=== PATIENT | male | born 1970 | race Caucasian/White ===

== ENCOUNTER 2019-02-14 05:14 | Day surgery (SDC) | payer BC ==
[2019-02-14] VITALS (8 sets, daily range): BP systolic 106–132; BP diastolic 75–85
[~2019-02-14] VITALS: Ht 172.7 cm; Wt 108.9 kg
[~2019-02-14 05:14] MED LIST: ATORVASTATIN CA40 MG ORAL; FLOMAX0.4 MG ORAL; LOSARTAN-HCTZ1 EACH ORAL; METFORMIN HCL1000 M1 ORAL; NORCO 5-325 TA1 EACH ORAL
[2019-02-14] MEDS ORDERED: LR 1000ml 1,000 ML IVLG SCH ×2 (06:34→07:00)
--- NOTE | 2019-02-14 06:34 | Anethesia Preoperative Eval ---
Anesthesia Pre-op PMH/ROS General Date of Evaluation: Feb 14, 2019 Anesthesiologist: Mando ASA Score: ASA 2 Mallampati Score Class I : Soft palate, uvula, fauces, pillars visible Class II: Soft palate, uvula, fauces visible Class III: Soft palate, base of uvula visible Class IV: Only hard plate visible Mallampati Classification: Class III Surgeon: Yohan Diagnosis: Screening Surgical Procedure: Colonoscopy Anesthesia History: none Family History: no anesthesia problems Allergies: Coded Allergies: No Known Allergies (Unverified , 02/13/19) Medications: see eMAR Patient NPO?: Yes NPO Date: Feb 13, 2019 NPO Time: 22:00 Past Medical History Cardiovascular: Reports: HTN, other - HLD; Denies: CAD, SC, valve dz, arrhythmia Pulmonary: Denies: asthma, COPD, SAPNA, other Gastrointestinal/Genitourinary: Reports: other - Colitis, BPH; Denies: GERD, CRI, ESRD Neurologic/Psychiatric: Reports: other - migraines, vertigo; Denies: dementia, CVA, depression/anxiety, TIA Endocrine: Reports: DM; Denies: hypothyroidism, steroids, other HEENT: Denies: cataract (L), cataract (R), glaucoma, [place] (L), [place] (R), other Hematology/Immune: Denies: anemia, DVT, bleeding disorder, other Musculoskeletal/Integumentary: Denies: OA, RA, DJD, DDD, edema, other Other: obesity PSxH Narrative: ex-lap Anesthesia Pre-op Phys. Exam Physician Exam Last Vital Signs Date Time Temp Pulse Resp B/P (MAP) Pulse Ox O2 Delivery O2 Flow Rate FiO2 02/14/19 05:50 Room Air 02/14/19 05:47 97.6 72 20 128/75 98 Constitutional: NAD Cardiovascular: RRR Respiratory: CTA Airway Exam Mallampati Score: Class III MO: limited ROM: limited Anesthesia Pre-op A/P Labs see chart Studies Pre-op Studies: EKG - sr Risk Assessment & Plan Assessment: ASA II Plan: MAC Status Change Before Surgery: No Pre-Antibiotics Drug: N/A Peggy Chong MD Feb 14, 2019 06:34
[2019-02-14] MEDS ORDERED: DiphenhydrAMINE 50mg/ml Inj IVP PRN (06:45)
[2019-02-14] MEDS ORDERED: Propofol 200mg/20ml IV ONE (07:00)
[2019-02-14] MEDS ORDERED: Glycopyrrolate 0.2mg/ml 1ml Vial ONE (07:00)
[2019-02-14] MEDS ORDERED: LR 1000ml ONE (07:00)
[2019-02-14] MEDS ORDERED: Lidocaine 1% MPF 10mg/ml 5ml ONE (07:00)
--- NOTE | 2019-02-14 07:10 | Pre-Procedure Note/Attestation ---
Pre-Procedure Note/Attestation Complete Prior to Procedure Planned Procedure: not applicable Procedure Narrative: colonoscopy Indications for Procedure Pre-Operative Diagnosis: UC Attestation I attest that I discussed the nature of the procedure; its benefits; risks and complications; and alternatives (and the risks and benefits of such alternatives ), prior to the procedure, with the patient (or the patient's legal new accounts representative). I attest that, if there was a reasonable possibility of needing a blood transfusion, the patient (or the patient's legal new accounts representative) was given the [facility] standardized written summary, pursuant to the [place] Blood Safety Act ([place] Health and Safety Code # 1645, as amended). I attest that I re-evaluated the patient just prior to the surgery and that there has been no change in the patient's H&P, except as documented below: Ginna Almanzar MD Feb 14, 2019 07:10
--- NOTE | 2019-02-14 07:10 | Short Stay Surgery H&P ---
History of Present Illness History of Present Illness Chief Complaint see attached typed H&P HPI Lupillo Zazueta is a 48 year old male who was admitted on for Ulcerative Colitis Patient History Allergies: Coded Allergies: No Known Allergies (Unverified , 02/13/19) Medication History Scheduled Atorvastatin Calcium* (Atorvastatin Calcium*), 40 MG ORAL BEDTIME, (Reported) Losartan/Hydrochlorothiazide (Losartan-Hctz 100-12.5 Mg Tab), 1 TAB ORAL DAILY, (Reported) Metformin Hcl* (Metformin Hcl*), 1,000 MG ORAL BID, (Reported) Tamsulosin HCl (Flomax), 0.4 MG ORAL DAILY, (Reported) Discontinued Medications Hydrocodone Bit/Acetaminophen 5-325* ([place] 5-325*), 1 TAB ORAL Q6H PRN for For Pain Discontinued Reason: Pt stopped taking med Physical Exam Vital Signs Last Vital Signs Date Time Temp Pulse Resp B/P (MAP) Pulse Ox O2 Delivery O2 Flow Rate FiO2 02/14/19 05:50 Room Air 02/14/19 05:47 97.6 72 20 128/75 98 Plan Attestation Are the patient's medical conditions optimized for surgery? Ginna Almanzar MD Feb 14, 2019 07:10
--- NOTE | 2019-02-14 08:05 | Immediate Post-Op Evaluation ---
Immediate Post-Op Evalulation Immediate Post-Op Evalulation Procedure: Colonoscopy Date of Evaluation: Feb 14, 2019 Time of Evaluation: 08:07 IV Fluids: 500 Blood Products: 0 Estimated Blood Loss: min Urinary Output: 0 Blood Pressure Systolic: 106 Blood Pressure Diastolic: 81 Pulse Rate: 90 Respiratory Rate: 18 O2 Sat by Pulse Oximetry: 99 Temperature (Fahrenheit): 97.8 Pain Score (1-10): 0 Nausea: No Vomiting: No Complications 0 Patient Status: awake, reacts, patent, none Hydration Status: adequate Drug: N/A Peggy Chong MD Feb 14, 2019 08:05
--- NOTE | 2019-02-14 08:07 | 48 Hour Post Anesthesia Eval ---
Post Anesthesia Evaluation Procedure: Colonoscopy Date of Evaluation: Feb 14, 2019 Airway: patent Nausea: No Vomiting: No Pain Intensity: 0 Hydration Status: adequate Cardiopulmonary Status: at baseline Mental Status/LOC: patient returned to baseline Post-Anesthesia Complications: 0 Follow-up care needed: ready to discharge Peggy Chong MD Feb 14, 2019 08:07
--- NOTE | 2019-02-14 08:22 | Endoscopy Procedure Note ---
Endoscopy Procedure Note General Indication for Procedure: UC Procedures Performed: colonoscopy Operative Findings/Diagnosis: polyp, pseudopol, tics, rhoid Specimen: yes Estimated Blood Loss: none Anesthesia Anesthesiologist: see report Anesthesia: MAC Medications Medication Given: see anesthesia record Inserted Devices Implant(s) used?: No GI Core Measures 50 yrs or older w/o bx or poly: Not Applicable 10yrs. F/U recommended: Not Applicable If not recommended, why?: Ginna Almanzar MD Feb 14, 2019 08:22
--- NOTE | 2019-02-14 08:24 | Brief Operative Note ---
Immediate Post Operative Note Operative Note Chief Complaint: UC Pre-op Diagnosis: UC Procedure: colon, bx, SN Post-op Diagnosis: polyps pseudopolyps tics rhoid Surgeon: beatriz Anesthesiologist: see report Anesthesia: MAC Specimen: yes Complications: none Condition: stable Fluids: recorded Estimated Blood Loss: none Drains: none Implant(s) used?: No Ginna Almanzar MD Feb 14, 2019 08:24
--- NOTE | 2019-02-14 18:15 | Operative Note - Dictated ---
DATE OF OPERATION: 02/14/2019 SURGEON: Ginna Almanzar M.D. ANESTHESIA: Please see the separate anesthesiologist notes for details. PRE-ENDOSCOPIC DIAGNOSIS: Longstanding history of ulcerative colitis. POST-ENDOSCOPIC DIAGNOSES: 1. Quiescent colitis with numerous pseudopolyps especially on the right colon. 2. Status post partial colectomy with end-side anastomosis seen in the region of the hepatic flexure. 3. Normal terminal ileum to about 15 cm, status post random biopsies. 4. Status post random biopsies of colon starting from 80 cm down to the rectum at 10 cm intervals in 4 quadrants. 5. Status post multiple pseudo polyp biopsies at various regions of the colon. These are marked at 70 cm and 60 cm and 40 cm. 6. Pedunculated polyp with a long stalk at 55 cm status post hot snare polypectomy. 7. Mild internal hemorrhoids. DESCRIPTION OF PROCEDURE: The procedure, its risks, indications, alternatives, and possible complications were explained to the patient and informed consent was obtained. A time-out was called, the patient was sedated and the rectal exam was done. The colonoscope was introduced into the rectum and advanced to the terminal ileum. The terminal ileum appeared normal for about 15 cm and biopsies were sent to pathology for review. In the colon, there are numerous small pseudopolyp formations especially in the right colon. Further documentation was obtained and biopsies were obtained for many of these polyps and sent to pathology. Random biopsies of the colon throughout the colon were also sent to pathology for review. In the right colon at 55 cm from the anus, there was a pedunculated polyp on a long stalk, which is removed with a hot snare polypectomy and the specimen was sent to pathology for review. The retroflexed view of the rectum revealed mild internal hemorrhoids. The colonoscope was removed and the patient was sent to recovery in good condition. COMPLICATIONS: None. RECOMMENDATIONS: 1. Follow up biopsy results. 2. Outpatient followup. 3. Repeat colonoscopy in one year. Ginna Almanzar M.D. DR: CHARIS JOB#: [id number] CC:
== END 2019-02-14 09:15 | disposition home or self-care (01) ==
LOC: GAS 05:14
DX: K51.90 Ulcerative colitis, unspecified, without complications (principal); K63.5 Polyp of colon; K64.8 Other hemorrhoids; E78.00 Pure hypercholesterolemia, unspecified; I10 Essential (primary) hypertension; K57.90 Diverticulosis of intestine, part unspecified, without perforation or abscess without bleeding; Z90.89 Acquired absence of other organs; Z90.49 Acquired absence of other specified parts of digestive tract
CPT/HCPCS: 45380; 45385; 82962; J2704; 94003; 94150

== ENCOUNTER 2020-01-03 19:10 | Emergency (ER) | payer BC ==
[~2020-01-03] VITALS: Ht 172.7 cm; Wt 104.3 kg
[2020-01-03] MEDS ORDERED: LIALDA1.2 GM ORAL (19:22)
[2020-01-03] MEDS ORDERED: JANUVIA100 MG ORAL (19:22)
[2020-01-03] MEDS ORDERED: fentaNYL 100 mcg/2 mL IV ONE (19:30)
[2020-01-03] MEDS ORDERED: Omnipaque-300 100ml vial INJ PRN (19:30)
[2020-01-03 20:00] LABS: BASOPHILS % (AUTO) 1.6 % (0.0-2.0); EOSINOPHILS % (AUTO) 3.2 % (0.0-3.0); HEMATOCRIT 43.8 % (42.0-52.0); LYMPHOCYTES % (AUTO) 27.1 % (20.0-45.0); MEAN CORPUSCULAR VOLUME 89 FL (80-99); MONOCYTES % (AUTO) 11.7 % (1.0-10.0); NEUTROPHILS % (AUTO) 56.3 % (45.0-75.0); PLATELET COUNT 240 K/UL (150-450); RED BLOOD COUNT 4.93 M/UL (4.70-6.10); RED CELL DISTRIBUTION WIDTH 12.5 % (11.6-14.8); WHITE BLOOD COUNT 8.3 K/UL (4.8-10.8)
[2020-01-03 20:03] VITALS: BP 139/97
[2020-01-03 20:09] LABS: APPEARANCE,URINE SLIGHTLY CLOUDY; BILIRUBIN, URINE NEGATIVE (NEGATIVE); COLOR,URINE YELLOW; GLUCOSE, URINE (UA) 4+ (NEGATIVE); KETONES,URINE 1+ (NEGATIVE); LEUKOCYTE ESTERASE ,URINE 1+ (NEGATIVE); NITRITE,URINE NEGATIVE (NEGATIVE); PH,URINE 7 (4.5-8.0); PROTEIN,URINE 1+ (NEGATIVE); UROBILINOGEN,URINE 4 MG/DL (0.0-1.0)
[2020-01-03 20:14] LABS: ANION GAP 12 mmol/L (5-15); BLOOD UREA NITROGEN 17 mg/dL (7-18); CALCIUM 9.4 MG/DL (8.5-10.1); CARBON DIOXIDE 27 MMOL/L (21-32); CHLORIDE 104 MMOL/L (98-107); CREATININE 0.9 MG/DL (0.55-1.30); POTASSIUM 3.8 MMOL/L (3.5-5.1); SODIUM 143 MMOL/L (136-145)
[2020-01-03 20:15] LABS: INR 0.9 (0.9-1.1)
[2020-01-03 20:18] LABS: ALANINE AMINOTRANSFERASE 23 U/L (12-78); ALBUMIN 3.8 G/DL (3.4-5.0); ALKALINE PHOSPHATASE 82 U/L (46-116); ASPARTATE AMINO TRANSFERASE 18 U/L (15-37)
--- NOTE | 2020-01-03 20:21 | Emergency Room Report ---
History of Present Illness General Chief Complaint: Skin Rash/Abscess Source: Patient Present Illness HPI Patient is a 49-year-old male past medical history of diabetes and obesity who presents to the ER complaining of our painful bump in between his scrotum and rectum that started 4 days ago. Patient denies any fever or chills. He denies any trauma. He denies any history of similar symptoms. Patient denies any bloody bowel movements. Patient denies any abdominal pain, nausea or vomiting. Patient states that he is able to urinate without difficulty. Allergies: Coded Allergies: No Known Allergies (Unverified , 02/13/19) COVID-19 Screening Contact w/high risk pt: No Recent Travel to affected area: No Experienced COVID-19 symptoms?: No COVID-19 Testing performed SWING DRIVER: No Patient History Past Medical History: DM, other - obesity Past Surgical History: none Social History: Denies: smoking, alcohol use, drug use Nursing Documentation-PMH Hx Cardiac Problems: No - hld Hx Hypertension: Yes Hx Diabetes: Yes Hx Cancer: No Hx Gastrointestinal Problems: Yes - colitis Hx Neurological Problems: Yes Hx Vertigo: Yes Hx Headaches: Yes - migraines Review of Systems All Other Systems: negative except mentioned in HPI Physical Exam Vital Signs Date Time Temp Pulse Resp B/P (MAP) Pulse Ox O2 Delivery O2 Flow Rate FiO2 01/03/20 19:16 98.8 100 16 139/97 (111) 96 Room Air Sp02 EP Interpretation: reviewed, normal General Appearance: no apparent distress, alert, GCS 15, non-toxic Head: normocephalic, atraumatic Eyes: bilateral eye normal inspection, bilateral eye PERRL ENT: hearing grossly normal, normal pharynx, no angioedema, normal voice Respiratory: chest non-tender, lungs clear, normal breath sounds, speaking full sentences Cardiovascular #1: regular rate, rhythm, no edema Gastrointestinal: normal bowel sounds, non tender, soft, non-distended, no guarding, no rebound Rectal: other - Fullness palpated in between the scrotum and rectum to the left it is not visible but it is palpable and tender to palpation there is no erythema there is no discharge there is no crepitus my storage manager was the patient 's bedside nurse Micaela Genitourinary: normal inspection, no CVA tenderness Musculoskeletal: back normal, normal range of motion, gait/station normal, non- tender Neurologic: alert, motor strength/tone normal, oriented x3, sensory intact, responsive, speech normal Psychiatric: judgement/insight normal, memory normal, mood/affect normal, no suicidal/homicidal ideation Skin: no rash Lymphatic: no adenopathy Medical Decision Making Diagnostic Impression: Primary Impression: Rectal pain ER Course Patients labs demonstrate hyperglycemia without DKA. Patient pending CT abd/ pelvis to evaluate this cristela-rectal mass. Signed out to Dr. Rice at [address], reevaluation, and final disposition. Last Vital Signs Date Time Temp Pulse Resp B/P (MAP) Pulse Ox O2 Delivery O2 Flow Rate FiO2 01/03/20 20:03 98.8 100 16 139/97 96 Room Air Signed Out To: Dr. Rice at 2130. Referrals: [facility],REFERRING (PCP) Erika Segundo M.D. January 03, 2020 20:21
--- NOTE | 2020-01-03 21:51 | Diagnostic Imaging Report ---
EXAM: CT Abdomen and Pelvis With Intravenous Contrast CLINICAL HISTORY: PAIN TECHNIQUE: Axial computed tomography images of the abdomen and pelvis with intravenous contrast. CTDI is 13.2 mGy and DLP is 767 mGy-cm. One or more of the following dose reduction techniques were used: automated exposure control, adjustment of the mA and/or kV according to patient size, use of iterative reconstruction technique. COMPARISON: 10/01/2015 FINDINGS: Lung bases: Unremarkable. No mass. No consolidation. ABDOMEN: Liver: Unremarkable. No mass. Gallbladder and bile ducts: Status post cholecystectomy. No ductal dilation. Pancreas: Unremarkable. No mass. No ductal dilation. Spleen: Unremarkable. No splenomegaly. Adrenals: Unremarkable. No mass. Kidneys and ureters: Unremarkable. No solid mass. No hydronephrosis. Stomach and bowel: Sigmoid diverticulosis without diverticulitis. Postsurgical changes along the GI tract without complication. PELVIS: Appendix: No findings to suggest acute appendicitis. Bladder: Unremarkable. No mass. Reproductive: Unremarkable as visualized. ABDOMEN and PELVIS: Intraperitoneal space: Unremarkable. No free air. No significant fluid collection. Bones/joints: No acute fracture. No dislocation. Soft tissues: Unremarkable. Vasculature: Unremarkable. No abdominal aortic aneurysm. Lymph nodes: Unremarkable. No enlarged lymph nodes. IMPRESSION: 1. No acute abnormality. 2. Sigmoid diverticulosis without diverticulitis.
[2020-01-03 21:54] VITALS: BP 132/79
[2020-01-03] MEDS ORDERED: NORCO 5-325 TA1 EAC1 ORAL (22:28)
[2020-01-03] MEDS ORDERED: METRONIDAZOLE500 MG ORAL (22:28)
[2020-01-03] MEDS ORDERED: CEPHALEXIN500 MG ORAL (22:28)
[2020-01-03] MEDS ORDERED: cefTRIAXone 1 GM in NS 55 ML IVPB ONE (22:30)
[2020-01-03] MEDS ORDERED: Ketorolac 30mg Inj IV ONE (22:30)
[2020-01-03 23:14] VITALS: BP 131/75
== END 2020-01-03 23:14 | disposition home or self-care (01) ==
LOC: EMR 19:36
DX: K62.89 Other specified diseases of anus and rectum (principal); I10 Essential (primary) hypertension; E11.9 Type 2 diabetes mellitus without complications; E66.9 Obesity, unspecified; Z68.34 Body mass index [BMI] 34.0-34.9, adult
CPT/HCPCS: 36415; 74177; 80053; 81003; 83690; 83735; 85025; 85610; 85730; 86850; 86900; 86901; 96361; 96365; 96375; 99284; J0696; J1885; J3010; J7030; Q9967

== ENCOUNTER 2020-05-08 06:40 | Day surgery (SDC) | payer BC ==
[~2020-05-08] VITALS: Ht 172.7 cm; Wt 104.3 kg
[2020-05-08] VITALS (8 sets, daily range): BP systolic 108–144; BP diastolic 62–89
--- NOTE | 2020-05-08 06:30 | Anethesia Preoperative Eval ---
Anesthesia Pre-op PMH/ROS General Date of Evaluation: May 08, 2020 Anesthesiologist: Mando ASA Score: ASA 2 Mallampati Score Class I : Soft palate, uvula, fauces, pillars visible Class II: Soft palate, uvula, fauces visible Class III: Soft palate, base of uvula visible Class IV: Only hard plate visible Mallampati Classification: Class III Surgeon: Yohan Diagnosis: UC Surgical Procedure: Colonoscopy Anesthesia History: none Family History: no anesthesia problems Allergies: Coded Allergies: No Known Allergies (Unverified , 02/13/19) Medications: see eMAR Patient NPO?: Yes NPO Date: May 08, 2020 NPO Time: 00:00 Past Medical History Cardiovascular: Reports: HTN, other - HLD; Denies: CAD, AR, valve dz, arrhythmia Pulmonary: Denies: asthma, COPD, SAPNA, other Gastrointestinal/Genitourinary: Reports: other - UC; Denies: GERD, CRI, ESRD Neurologic/Psychiatric: Reports: other - vertigo, migraines; Denies: dementia, CVA, depression/anxiety, TIA Endocrine: Reports: DM; Denies: hypothyroidism, steroids, other HEENT: Denies: cataract (L), cataract (R), glaucoma, [place] (L), [place] (R), other Hematology/Immune: Denies: anemia, DVT, bleeding disorder, other Musculoskeletal/Integumentary: Denies: OA, RA, DJD, DDD, edema, other Other: obesity PSxH Narrative: ex-lap Anesthesia Pre-op Phys. Exam Physician Exam see chart Constitutional: NAD Cardiovascular: RRR Respiratory: CTA Airway Exam Mallampati Score: Class III MO: limited ROM: limited Anesthesia Pre-op A/P Labs see chart Studies Pre-op Studies: EKG - sr Risk Assessment & Plan Assessment: ASA II Plan: MAC Status Change Before Surgery: No Pre-Antibiotics Drug: N/A Peggy Gilmore MD May 08, 2020 06:30
[~2020-05-08 06:40] MED LIST changes: +CEPHALEXIN500 MG ORAL; +DiphenhydrAMINE 50mg/ml Inj IVP PRN; +JANUVIA100 MG ORAL; +LIALDA1.2 GM ORAL; +LR 1000ml 1,000 ML IVLG SCH; +METRONIDAZOLE500 MG ORAL; +NORCO 5-325 TA1 EAC1 ORAL
[2020-05-08] MEDS ORDERED: Lidocaine 1% MPF 10mg/ml 5ml ONE (07:30)
[2020-05-08] MEDS ORDERED: LR 1000ml ONE (07:30)
--- NOTE | 2020-05-08 07:47 | Pre-Procedure Note/Attestation ---
Pre-Procedure Note/Attestation Complete Prior to Procedure Planned Procedure: not applicable Procedure Narrative: colon Indications for Procedure Pre-Operative Diagnosis: UC Attestation I attest that I discussed the nature of the procedure; its benefits; risks and complications; and alternatives (and the risks and benefits of such alternatives), prior to the procedure, with the patient (or the patient's legal customer response representative). I attest that, if there was a reasonable possibility of needing a blood transfusion, the patient (or the patient's legal customer response representative) was given the [facility] standardized written summary, pursuant to the [place] Blood Safety Act ([place] Health and Safety Code # 1645, as amended). I attest that I re-evaluated the patient just prior to the surgery and that there has been no change in the patient's H&P, except as documented below: Ginna Almanzar MD May 08, 2020 07:47
--- NOTE | 2020-05-08 07:47 | Short Stay Surgery H&P ---
History of Present Illness History of Present Illness Chief Complaint see attached HPI Lupillo Zazueta is a 49 year old male who was admitted on for Ulcerative Chronic Colitis Patient History Allergies: Coded Allergies: No Known Allergies (Unverified , 02/13/19) Medication History Scheduled Atorvastatin Calcium* (Atorvastatin Calcium*), 40 MG ORAL BEDTIME, (Reported) Losartan/Hydrochlorothiazide (Losartan-Hctz 100-12.5 Mg Tab), 1 TAB ORAL DAILY, (Reported) Mesalamine (Lialda), 2.4 GM ORAL DAILY, (Reported) Metformin Hcl* (Metformin Hcl*), 1,000 MG ORAL BID, (Reported) Sitagliptin (Januvia), 100 MG ORAL DAILY, (Reported) Tamsulosin HCl (Flomax), 0.4 MG ORAL DAILY, (Reported) Discontinued Medications Cephalexin* (Keflex*), 500 MG ORAL FOUR TIMES A DAY Discontinued Reason: Therapy completed Hydrocodone Bit/Acetaminophen 5-325* ([place] 5-325 Tablet*), 1 TAB ORAL Q4H PRN for FOR PAIN Discontinued Reason: Pt stopped taking med Metronidazole* (Flagyl*), 500 MG ORAL BID Discontinued Reason: Therapy completed Physical Exam Vital Signs Last Vital Signs Date Time Temp Pulse Resp B/P (MAP) Pulse Ox O2 Delivery O2 Flow Rate FiO2 05/08/20 07:03 Room Air 05/08/20 07:00 97.5 67 18 144/89 99 Labs Laboratory Tests Test 05/08/20 07:05 POC Whole Blood Glucose 242 MG/DL (74-106) H Plan Attestation Are the patient's medical conditions optimized for surgery? Ginna Almanzar MD May 08, 2020 07:47
--- NOTE | 2020-05-08 08:26 | Immediate Post-Op Evaluation ---
Immediate Post-Op Evalulation Immediate Post-Op Evalulation Procedure: Colonoscopy Date of Evaluation: May 08, 2020 Time of Evaluation: 08:29 IV Fluids: 200 Blood Products: 0 Estimated Blood Loss: 0 Urinary Output: 0 Blood Pressure Systolic: 121 Blood Pressure Diastolic: 78 Pulse Rate: 64 Respiratory Rate: 16 O2 Sat by Pulse Oximetry: 100 Temperature (Fahrenheit): 97 Pain Score (1-10): 0 Nausea: No Vomiting: No Complications 0 Patient Status: awake, reacts, patent, none Hydration Status: adequate Drug: N/A Peggy Gilmore MD May 08, 2020 08:26
--- NOTE | 2020-05-08 08:27 | 48 Hour Post Anesthesia Eval ---
Post Anesthesia Evaluation Procedure: Colonoscopy Date of Evaluation: May 08, 2020 Airway: patent Nausea: No Vomiting: No Pain Intensity: 0 Hydration Status: adequate Cardiopulmonary Status: at baseline Mental Status/LOC: patient returned to baseline Post-Anesthesia Complications: 0 Follow-up care needed: ready to discharge Peggy Gilmore MD May 08, 2020 08:27
--- NOTE | 2020-05-08 09:20 | Endoscopy Procedure Note ---
Endoscopy Procedure Note General Indication for Procedure: UC Operative Findings/Diagnosis: pseudopolyps, TICS Specimen: yes Pt Tolerated Procedure Well: Yes Estimated Blood Loss: none Anesthesia Anesthesiologist: Ceja Anesthesia: MAC, moderate sedation Medications Medication Given: see anesthesia record Inserted Devices Implant(s) used?: No GI Core Measures 50 yrs or older w/o bx or poly: Not Applicable 10yrs. F/U recommended: Not Applicable If not recommended, why?: Above average risk 18 years or older w/prev. colo: Yes <3yrs. since last colonoscopy: No Med reason:<3 yrs.: System Reason:<3 yrs.: Last colonoscopy >= to 3yrs: Yes Ginna Almanzar MD May 08, 2020 09:20
--- NOTE | 2020-05-08 09:22 | Brief Operative Note ---
Immediate Post Operative Note Operative Note Chief Complaint: UC Pre-op Diagnosis: UC Procedure: colon bx Post-op Diagnosis: pseudopolyps, Tics, TI erythema Surgeon: beatriz Anesthesiologist: Brenna Anesthesia: MAC Specimen: yes Complications: none Condition: stable Fluids: per anesthesia Estimated Blood Loss: none - per Drains: none Implant(s) used?: No Ginna Almanzar MD May 08, 2020 09:22
--- NOTE | 2020-05-08 10:29 | Procedure Note ---
DATE OF PROCEDURE: 05/08/2020 GASTROENTEROLOGY PROCEDURE REPORT PROCEDURE: Colonoscopy with biopsy. SURGEON: Ginna Almanzar MD ANESTHESIA: Dr. Gilmore. PRE-ENDOSCOPIC DIAGNOSIS: Longstanding history of ulcerative colitis. POST-ENDOSCOPIC DIAGNOSES: 1. Mild erythema of the terminal ileum of doubtful significance, status post biopsy. 2. Numerous pseudopolyps throughout the colon. 3. No endoscopic evidence of active colitis by visual criteria. 4. Mild to moderate sigmoid diverticulosis. 5. Status post multiple biopsies as described below. DESCRIPTION OF PROCEDURE: The procedure its risks, indications, alternatives, and possible complications including but not limited to bleeding, infection, perforation, , and anesthesia complications were explained to the patient and informed consent was obtained. The patient was then sedated in the left lateral decubitus position and a rectal exam was done. The colonoscope was introduced in the rectum and advanced to 15 cm into the terminal ileum. The colonoscope was then gradually withdrawn and the mucosa was examined carefully. Examination of the terminal ileum mucosa revealed some mild erythema of doubtful significance. Biopsies were sent to pathology for review. Throughout the colon, there were numerous pseudopolyps with typical elongated shapes. Some of these were biopsied in the ascending colon, transverse colon, sigmoid colon. Also random biopsies were obtained throughout the colon and the rectum. Retroflex view of the rectum was unremarkable. The colonoscope was removed and the patient was sent to recovery in good condition. COMPLICATIONS: None. RECOMMENDATIONS: 1. Followup biopsy results. 2. Outpatient followup. Ginna Almanzar M.D. DR: Zo JOB#: [id number] CC: EDGAR
== END 2020-05-08 09:15 | disposition home or self-care (01) ==
LOC: GAS 06:40
DX: K51.90 Ulcerative colitis, unspecified, without complications (principal); K52.9 Noninfective gastroenteritis and colitis, unspecified; I10 Essential (primary) hypertension; E78.5 Hyperlipidemia, unspecified; E11.9 Type 2 diabetes mellitus without complications; E66.9 Obesity, unspecified; K57.90 Diverticulosis of intestine, part unspecified, without perforation or abscess without bleeding; K63.5 Polyp of colon; Z79.84 Long term (current) use of oral hypoglycemic drugs; Z79.899 Other long term (current) drug therapy; Z68.35 Body mass index [BMI] 35.0-35.9, adult
CPT/HCPCS: 45380; 82962; 94003; J2704; J7120; U0002; 94150